=== PATIENT | male | born 1980 | race Caucasian/White ===

== ENCOUNTER → 2021-06-05 | Outpatient (CLI) | payer MEDICARE, OTHER ==
[2021-06-05 18:01] LABS: HEMOGLOBIN 17.1 gm/dl (14.0-17.5); RED BLOOD COUNT 5.24 M/UL (4.20-5.50); WHITE BLOOD COUNT 8.5 K/UL (4.5-11.0)
[2021-06-05 18:31] LABS: BUN/CREATININE RATIO 8 (0-10)
[2021-06-07 07:09] LABS: TESTOSTERONE, SERUM 276 ng/dL (264-916); VITAMIN D, 25-HYDROXY 46.6 ng/mL (30.0-100.0)
== END ==
LOC: LAB 16:21
PROVIDERS: Nurse Practitioner Family
DX: E53.8 Deficiency of other specified B group vitamins (principal); E72.12 Methylenetetrahydrofolate reductase deficiency; F31.9 Bipolar disorder, unspecified; R53.83 Other fatigue; E78.1 Pure hyperglyceridemia; E66.09 Other obesity due to excess calories; Z79.899 Other long term (current) drug therapy
CPT/HCPCS: 80048; 80061; 82607; 82746; 83036; 84403; 85025

== ENCOUNTER → 2021-06-24 | Outpatient (CLI) | payer MEDICARE, OTHER | LOC: HEART 5 15:57 | DX: R06.00 Dyspnea, unspecified (principal); J45.909 Unspecified asthma, uncomplicated | CPT/HCPCS: 94010 ==

== ENCOUNTER 2021-10-22 12:48 | Emergency (ER) | payer MEDICARE, OTHER | END 2021-10-22 13:50 | disposition home or self-care (01) | LOC: ER1 12:48 | DX: S01.412A Laceration without foreign body of left cheek and temporomandibular area, initial encounter (principal); S00.81XA Abrasion of other part of head, initial encounter; W54.1XXA Struck by dog, initial encounter | CPT/HCPCS: 12011; 99282 ==